=== PATIENT | male | born 1990 | race Caucasian/White ===

== ENCOUNTER 2019-07-03 14:39 | Emergency (ER) | payer SELFPAY ==
[2019-07-03 14:53] VITALS: BP 112/64
[2019-07-03] MEDS ORDERED: IBUPROFEN 800 MG TABLET PO ONE (15:00)
--- NOTE | 2019-07-03 15:01 | ER Document Report ---
HPI - HPI Patient complains to provider of: Low back pain Time Seen by Provider: 07/03/19 14:56 Onset: Just prior to arrival Onset/Duration: Sudden Quality of pain: Achy Context: This 29-year-old male with no past history presents emergency department with complaints of left-sided low back pain. Reports he was just sitting on the couch when he turned in the low left back of his back started hurting. Reports only pain with movement. Denies fever vomiting diarrhea. Denies pain with void. Reports he is voiding without issues. Denies history of kidney stones. Denies injury. patient did not take anything for the pain because he did not have anything at home. Associated Symptoms: None Exacerbated by: Movement Relieved by: Denies Similar symptoms previously: No Recently seen / treated by doctor: No Past Medical History - General Information source: Patient - Social History Smoking Status: Current Every Day Smoker Cigarette use (# per day): Yes Chew tobacco use (# tins/day): No Frequency of alcohol use: None Drug Abuse: Marijuana Lives with: Family Family History: None Patient has suicidal ideation: No Patient has homicidal ideation: No - Medical History Medical History: Negative Past Surgical History: Reports: Hx Adenoidectomy, Hx Tonsillectomy Vertical Provider Document - CONSTITUTIONAL Agree With Documented VS: Yes Exam Limitations: No Limitations General Appearance: WD/WN, No Apparent Distress - HEENT HEENT: Atraumatic, Normocephalic - NECK Neck: Supple - RESPIRATORY Respiratory: No Respiratory Distress - CARDIOVASCULAR Cardiovascular: Regular Rate - GI/ABDOMEN Gastrointestinal: Abdomen Soft - BACK Back: Normal Inspection. negative: CVA Tenderness-Right, CVA Tenderness-Left - MUSCULOSKELETAL/EXTREMETIES Musculoskeletal/Extremeties: TOMÁS FIELD - NEURO Level of Consciousness: Awake, Alert, Appropriate Motor/Sensory: No Motor Deficit - DERM Integumentary: Warm, Dry Adult Front & Back Diagram: 1 - Reports low back pain when he moves. No pain with touch. No erythema no swelling no warmth good distal movement and sensation Course - Re-evaluation Re-evalutation: 07/03/19 15:04 This 29-year-old male presents emergency department with left-sided low back pain that started when he was watching TV and he turned while sitting on the couch. Denies pain with void. Denies history of back pain. Denies fever vomiting diarrhea. Reports he only hurts when he moves. Patient did not take anything for the pain because he did not have anything. Patient was instructed on low back pain Motrin ice packs and to return for any symptoms such as fever increased pain problems voiding. He verbalized understand all instructions. Dictation of this chart was performed using voice recognition software; therefore, there may be some unintended grammatical errors. Low suspicion for any meningitis, fracture, expanding/ruptured AAA, cauda equina syndrome, epidural mass lesion/abscess, herniated disc causing severe spinal stenosis, or other systemic infection at this time. Patient is aware that this condition can change from initial presentation and that she needs monitor symptoms closely for any acute changes. - Vital Signs Vital signs: Temp Pulse Resp BP Pulse Ox 98.1 F 77 18 112/64 99 07/03/19 14:50 07/03/19 14:50 07/03/19 14:50 07/03/19 14:50 07/03/19 14:50 Discharge - Discharge Clinical Impression: left side low back pain Condition: Stable Disposition: HOME, SELF-CARE Instructions: Use of [id number]-[id number]-Pmrpufo Ibuprofen ([facility]), Ice Packs ([facility]), Low Back Pain ([facility]) Additional Instructions: *You have been evaluated for back pain *Take ibuprofen as indicated *apply ice packs to the sore area, avoid heavy lifting *Follow up with a primary care provider within 1 week for recheck *Return to ED for worsening condition, changes, needs, fever or difficulty voiding increased pain Referrals: ASHWIN AGUILA MD [Primary Care Provider] - Follow up in 1 week
== END 2019-07-03 15:08 | disposition home or self-care (01) ==
LOC: ER 14:39
DX: M54.5 Low back pain (principal); F17.210 Nicotine dependence, cigarettes, uncomplicated
CPT/HCPCS: 99283